=== PATIENT | female | born 2000 | race Caucasian/White ===

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

== ENCOUNTER 2021-06-11 12:43 | Emergency (ER) | payer BC ==
[2021-06-11] MEDS ORDERED: Ibuprofen 600 MG Tab PO ONE (13:57)
[2021-06-11] MEDS ORDERED: Lidocaine/EPINEPHrine/Tetracaine Soln 1 ML TOP ONE (14:58)
== END 2021-06-11 16:19 | disposition home or self-care (01) ==
LOC: JD.ED 12:43
DX: S01.21XA Laceration without foreign body of nose, initial encounter (principal); W26.8XXA Contact with other sharp object(s), not elsewhere classified, initial encounter
CPT/HCPCS: 12011; 99282; A9270